=== PATIENT | female | born 1960 | race Caucasian/White ===

== ENCOUNTER 2017-10-30 21:15 | Emergency (ER) | payer OTHER ==
[~2017-10-30] VITALS: Ht 152.4 cm; Wt 68.0 kg
[2017-10-30 21:52] VITALS: Ht 152.4 cm; Wt 68.0 kg
[2017-10-31 00:41] VITALS: BP 121/71
== END 2017-10-31 00:41 | disposition home or self-care (01) ==
LOC: ED 21:15
DX: M25.512 Pain in left shoulder (principal); M25.511 Pain in right shoulder; M13.88 Other specified arthritis, other site
CPT/HCPCS: J1885; J2270; Q0162